=== PATIENT | female | born 1995 | race Hispanic/Latino ===

== ENCOUNTER 2018-06-09 06:39 | Day surgery (SDC) | payer OTHER ==
[2018-06-03 12:42] LABS: BASOPHILS % (AUTO) 0.3 % (0.0-5.0); EOSINOPHILS % (AUTO) 0.8 % (0.0-8.0); HEMATOCRIT 38.2 % (36-48); LYMPHOCYTES % (AUTO) 26.8 % (21.0-51.0); MEAN CORPUSCULAR HEMOGLOBIN 28.6 pg (27.0-33.0); MEAN CORPUSCULAR HGB CONC 33.5 g/dL (32.0-36.0); MEAN CORPUSCULAR VOLUME 85.2 fL (80-100); MONOCYTES % (AUTO) 7.7 % (3.0-13.0); NEUTROPHILS % (AUTO) 64.4 % (40.0-77.0); PLATELET COUNT (AUTO) 278 K/uL (130-400); RED BLOOD CELL COUNT(AUTO) 4.48 MIL/uL (4.00-5.50); RED CELL DISTRIBUTION WIDTH 13.5 % (11.0-15.5); WHITE BLOOD COUNT (AUTO) 8.5 K/uL (4.8-10.8)
[2018-06-03 12:51] VITALS: BP 132/71
[2018-06-03 13:00] LABS: CREATININE 0.7 mg/dL (0.5-1.5)
[~2018-06-09] VITALS: Ht 160 cm; Wt 61.7 kg
[2018-06-09] VITALS (16 sets, daily range): BP systolic 117–139; BP diastolic 65–81
[2018-06-09] MEDS: CEFAZOLIN SODIUM 1 GM VIAL IVP SCH ×2 (07:00→08:15)
[2018-06-09] MEDS ORDERED: DEXAMETHASONE SOD PHOSPHATE 10MG/ML 1ML VIAL ONE (07:01)
[2018-06-09] MEDS ORDERED: ROPIVACAINE 0.5% 5MG/ML 30ML IJ ONE (07:01)
[2018-06-09] MEDS ORDERED: LIDOCAINE PF 2% 5ML ABBOJECT ONE (07:01)
[2018-06-09] MEDS ORDERED: LIDOCAINE HCL MPF 1% 5ML VIAL ONE (07:01)
[2018-06-09] MEDS ORDERED: FENTANYL CITRATE PF 50 MCG/1 ML 5ML AMP IV ONE (07:02)
[2018-06-09] MEDS ORDERED: ONDANSETRON HCL 4 MG/2 ML VIAL ONE (07:02)
[2018-06-09] MEDS ORDERED: PROPOFOL 10 MG/ML 20ML VIAL IV ONE (07:02)
[2018-06-09] MEDS ORDERED: MIDAZOLAM HCL 1 MG/ML 2ML VIAL ONE (07:02)
[2018-06-09] MEDS ORDERED: LACTATED RINGERS 1000ML 1,000 ML IV ONE (07:19)
[2018-06-09] MEDS ORDERED: BACITRACIN 50,000 UNIT VIAL ONE (07:22)
[2018-06-09] MEDS ORDERED: MEPERIDINE-PF 25 MG/ML SYG ONE ×2 (10:13→10:31)
[2018-06-09] MEDS ORDERED: KETOROLAC TROMETHAMINE 30MG/ML ONE (10:31)
== END 2018-06-09 12:30 | disposition home or self-care (01) ==
LOC: DAH 06:39
PROVIDERS: ATTEND Orthopaedic Surgery
DX: S83.512A Sprain of anterior cruciate ligament of left knee, initial encounter (principal); S83.282A Other tear of lateral meniscus, current injury, left knee, initial encounter; X58.XXXA Exposure to other specified factors, initial encounter; Y93.9 Activity, unspecified; Y92.89 Other specified places as the place of occurrence of the external cause; Y99.9 Unspecified external cause status; M19.90 Unspecified osteoarthritis, unspecified site
CPT/HCPCS: 29882; 29888; 36415; 76000; 80048; 84702; 85025; A4248; A4450; A4649 ×6; A4930 ×3; A6223; C1713 ×4; C1769; C1776; J0690 ×2; J1100; J1885; J2001; J2175 ×2; J2250; J2405; J2704; J2795; J3010; J3490; J7120

== ENCOUNTER 2018-07-14 11:50 | Emergency (ER) | payer OTHER | END 2018-07-14 12:42 | disposition home or self-care (01) | LOC: EDH 11:50 | DX: S83.92XA Sprain of unspecified site of left knee, initial encounter (principal); Z79.899 Other long term (current) drug therapy; Z98.890 Other specified postprocedural states; X58.XXXA Exposure to other specified factors, initial encounter; Y93.89 Activity, other specified; Y92.69 Other specified industrial and construction area as the place of occurrence of the external cause; Y99.8 Other external cause status | CPT/HCPCS: 29505; 73562 ==

== ENCOUNTER 2022-06-18 09:39 | Observation (INO) | payer MEDICAID, OTHER ==
[~2022-06-18] VITALS: Ht 162.6 cm; Wt 79.8 kg
[2022-06-18 10:33] VITALS: BP 104/55
[2022-06-18 10:48] LABS: APPEARANCE,URINE CLEAR (CLEAR); BILIRUBIN,URINE NEGATIVE (NEGATIVE); COLOR,URINE LIGHT-YELLOW (YELLOW); GLUCOSE, URINE (UA) NEGATIVE (NEGATIVE); KETONES,URINE NEGATIVE (NEGATIVE); LEUKOCYTE ESTERASE ,URINE 25 Leu/uL (NEGATIVE); NITRATE,URINE NEGATIVE (NEGATIVE); OCCULT BLOOD,URINE LARGE (NEGATIVE); PH,URINE 6.5 (5.0-8.0); PROTEIN,URINE NEGATIVE (NEGATIVE); UROBILINOGEN,URINE 0.2 mg/dL (0.2-1.0)
[2022-06-18 10:57] LABS: BACTERIA,URINE RARE /HPF (None Seen); MUCUS,URINE RARE LPF (None Seen); SQUAMOUS EPITHELIAL CELL,UR FEW /HPF (0-2)
[2022-06-19] MEDS ORDERED: PREN1COM PO (13:05)
[2022-06-19] MEDS ORDERED: IRON-23 PO (13:05)
== END 2022-06-18 11:30 | disposition home or self-care (01) ==
LOC: EDH 09:39 → LDH 09:40
PROVIDERS: ADMIT Obstetrics & Gynecology; ATTEND Obstetrics & Gynecology
DX: O46.93 Antepartum hemorrhage, unspecified, third trimester (principal); Z3A.39 39 weeks gestation of pregnancy; Z79.899 Other long term (current) drug therapy
CPT/HCPCS: 59025; 87088; 81001; G0378

== ENCOUNTER 2022-06-19 01:21 | Inpatient (IN) | payer MEDICAID ==
[~2022-06-19] VITALS: Ht 162.6 cm; Wt 81.6 kg
[2022-06-19 02:00] LABS: APPEARANCE,URINE CLEAR (CLEAR); BILIRUBIN,URINE NEGATIVE (NEGATIVE); COLOR,URINE YELLOW (YELLOW); GLUCOSE, URINE (UA) NEGATIVE (NEGATIVE); KETONES,URINE NEGATIVE (NEGATIVE); LEUKOCYTE ESTERASE ,URINE NEGATIVE Leu/uL (NEGATIVE); NITRATE,URINE NEGATIVE (NEGATIVE); OCCULT BLOOD,URINE MODERATE (NEGATIVE); PH,URINE 6.5 (5.0-8.0); PROTEIN,URINE 20 mg/dL (NEGATIVE); UROBILINOGEN,URINE 0.2 mg/dL (0.2-1.0)
[2022-06-19 02:04] LABS: BACTERIA,URINE RARE /HPF (None Seen); MUCUS,URINE RARE LPF (None Seen); RBC,URINE 26-50 /HPF (0-1); SQUAMOUS EPITHELIAL CELL,UR FEW /HPF (0-2)
[2022-06-19] MEDS ORDERED: LACTATED RINGERS 500 ML 500 ML IV PRN (03:00)
[2022-06-19] MEDS ORDERED: OXYTOCIN-LR 20 UNITS/1000 ML 1,000 ML IV SCH ×3 (03:00→10:00)
[2022-06-19] MEDS ORDERED: NALOXONE HCL 0.4 MG/1 ML ML IV PRN (03:00)
[2022-06-19] MEDS ORDERED: EPHEDRINE SULFATE 50 MG/ML AMPULE IVP PRN (03:00)
[2022-06-19] MEDS ORDERED: ROPIVACAINE 0.2% 100ML VIAL 100 ML EP SCH (03:00)
[2022-06-19] MEDS ORDERED: BUTORPHANOL TARTRATE 2 MG/ML IVP PRN (03:00)
[2022-06-19] MEDS: LACTATED RINGERS 1000ML 1,000 ML IV PRN ×3 (03:19→07:54)
[2022-06-19 03:23] LABS: HEMATOCRIT 37.2 % (36-48); MEAN CORPUSCULAR HEMOGLOBIN 27.6 pg (27.0-33.0); MEAN CORPUSCULAR HGB CONC 32.5 g/dL (32.0-36.0); MEAN CORPUSCULAR VOLUME 84.9 fL (79-99); PLATELET COUNT (AUTO) 216 K/uL (130-400); RED BLOOD CELL COUNT(AUTO) 4.38 MIL/uL (4.00-5.50); RED CELL DISTRIBUTION WIDTH 19.5 % (11.0-15.5); WHITE BLOOD COUNT (AUTO) 12.8 K/uL (4.8-10.8)
[2022-06-19] MEDS ORDERED: AMPICILLIN 2GM+NS 100ML 100 ML IV SCH (04:00)
[2022-06-19] MEDS ORDERED: AMPICILLIN 1GM+NS 50ML 50 ML IV SCH (08:00)
[2022-06-19] MEDS ORDERED: LIDOCAINE HCL 1% 20 ML VIAL ONE (08:48)
[2022-06-19] MEDS ORDERED: MISOPROSTOL 200 MCG TABLET ONE (08:49)
[2022-06-19] MEDS ORDERED: METHYLERGONOVINE MALEATE 0.2 MG/1 ML ML ONE (08:49)
[2022-06-19 09:51] LABS: RAPID PLASMA REAGIN NONREACTIVE (NONREACTIVE)
[2022-06-19] MEDS ORDERED: WITCH HAZEL 1 PAD TP PRN (10:00)
[2022-06-19] MEDS ORDERED: DIPH,PERTUSS(ACELL),TET VAC/PF 0.5 ML VIAL IM PRN (10:00)
[2022-06-19] MEDS ORDERED: LANOLIN 30GM OINTMENT TP PRN (10:00)
[2022-06-19] MEDS ORDERED: ACETAMINOPHEN WITH CODEINE 1 TAB TAB PO PRN (10:00)
[2022-06-19] MEDS ORDERED: ACETAMINOPHEN 325 MG TAB PO PRN (10:00)
[2022-06-19] MEDS ORDERED: MEASLES/MUMPS/RUBELLA VACCINE, LIVE 0.5 ML/VIAL SQ PRN (10:00)
[2022-06-19] MEDS ORDERED: BENZOCAINE/LANOLIN/ALOE VERA 60 ML AEROSOL TP PRN (10:00)
[2022-06-19 12:30] VITALS: BP 109/61
[2022-06-19] MEDS ORDERED: IRON-23 PO (13:05)
[2022-06-19] MEDS ORDERED: PREN1COM PO (13:05)
[2022-06-19] MEDS: IBUPROFEN 600 MG TABLET PO PRN (14:00)
[2022-06-19 16:00] VITALS: BP 114/62
[2022-06-19 19:18] VITALS: BP 118/73
[2022-06-19] MEDS: DOCUSATE SODIUM 100 MG CAP PO SCH (20:32)
[2022-06-19 23:09] VITALS: BP 97/69
[2022-06-20 03:25] VITALS: BP 94/61
[2022-06-20 07:34] VITALS: BP 104/49
[2022-06-20] MEDS: IBUPROFEN 600 MG TABLET PO PRN (08:36)
[2022-06-20] MEDS: DOCUSATE SODIUM 100 MG CAP PO SCH (08:36)
[2022-06-20 11:54] VITALS: BP 112/59
== END 2022-06-20 13:00 | disposition home or self-care (01) | DRG 560 ==
LOC: EDH 01:21 → OBSVTOIN 01:32 → LDH 01:32 → WSH 14:57
PROVIDERS: ADMIT Obstetrics & Gynecology; ATTEND Obstetrics & Gynecology
PROC: 10E0XZZ Delivery of Products of Conception, External Approach (ICD-10-PCS; principal; 2022-06-19)
PROC: 3E0R3BZ Introduction of Anesthetic Agent into Spinal Canal, Percutaneous Approach (ICD-10-PCS; 2022-06-19)
PROC: 3E0R33Z Introduction of Anti-inflammatory into Spinal Canal, Percutaneous Approach (ICD-10-PCS; 2022-06-19)
DX: O80 Encounter for full-term uncomplicated delivery (principal); Z37.0 Single live birth; Z3A.39 39 weeks gestation of pregnancy
CPT/HCPCS: 36415; 81001; 85027; 86592; 86701; 86850; 86900; 86901; 87340; 87390; A4314; G0378; J0290; J0595; J2210; J2590; J2795; J7120